=== PATIENT | male | born 1955 | race Caucasian/White ===

== ENCOUNTER 2023-10-30 17:41 | Inpatient (IN) | payer MEDICARE ==
[~2023-10-30] VITALS: Ht 180.3 cm; Wt 106.6 kg
[2023-10-30] MEDS ORDERED: MAGNESIUM HYDROXIDE 30 ML UDC PO PRN (20:30)
[2023-10-30] MEDS ORDERED: Z GUARD REMEDY 4 OZ OINT TP PRN (20:30)
[2023-10-30] MEDS ORDERED: ACETAMINOPHEN 325 MG TABLET PO PRN (20:30)
[2023-10-30] MEDS ORDERED: ONDANSETRON HCL/PF 4 MG/2 ML VIAL IVP PRN (20:30)
[2023-10-30] MEDS ORDERED: HYDROMORPHONE 1 MG/1 ML DISP.SYRIN ONE (20:35)
[2023-10-30] MEDS: ONDANSETRON HCL/PF 4 MG/2 ML VIAL IVP ONE (20:43)
[2023-10-30] MEDS: HYDROMORPHONE INJ 2 MG/ML DISP.SYRIN IV ONE (20:43)
[2023-10-30] MEDS: IV NS 0.9% 1,000 ML BAG IV ONE (20:43)
[2023-10-30 20:59] LABS: BASOPHILS % (AUTO) 0.6 % (0.0-2.0); EOSINOPHILS % (AUTO) 0.3 % (0.0-6.0); HEMATOCRIT 43 % (39-51); HEMOGLOBIN 14.9 g/dL (13.5-17.5); LYMPHOCYTES # (AUTO) 1.2 K/uL (0.8-4.8); LYMPHOCYTES % (AUTO) 19.1 % (20.0-44.0); MEAN CORPUSCULAR HEMOGLOBIN 38 PG (26.0-33.0); MEAN CORPUSCULAR HGB CONC 35 g/dl (31.0-36.0); MEAN CORPUSCULAR VOLUME 108 fL (80-96); MONOCYTES % (AUTO) 16.2 % (2.0-12.0); NEUTROPHILS % (AUTO) 63.8 % (43.0-81.0); PLATELET COUNT (AUTO) 69 K/uL (150-450); RED BLOOD CELL COUNT(AUTO) 3.96 MIL/uL (4.5-6.0); RED CELL DISTRIBUTION WIDTH 14.3 % (11.5-15.0); WHITE BLOOD COUNT (AUTO) 6.3 K/uL (4.3-11.0)
[2023-10-30 21:07] LABS: CALCIUM, SERUM 9.2 mg/dL (8.5-10.1); CREATININE 0.9 mg/dL (0.6-1.3); POTASSIUM 4.3 mmol/L (3.5-5.1)
[2023-10-30 21:15] LABS: INR 1.37 (0.91-1.10); PARTIAL THROMBOPLASTIN TIME 31.6 SEC (24.3-34.3); PROTHROMBIN TIME 14.2 SECS (9.2-11.1)
[2023-10-30 21:26] LABS: LYMPHOCYTES % (MANUAL) 19 % (16-48); MONOCYTES % (MANUAL) 12 % (0-11.0); NEUTROPHILS % (MANUAL) 69 (42-76); PLATELET ESTIMATE DECREASED
[2023-10-30 21:27] LABS: ANISOCYTOSIS 1+
[2023-10-30] MEDS ORDERED: EMPA25TA MT (23:02)
[2023-10-30] MEDS ORDERED: FURO20TA4 PO (23:02)
[2023-10-31] VITALS (19 sets, daily range): BP systolic 80–129; BP diastolic 41–73; TEMP 97.7–99; O2SAT 95–100
[2023-10-31] MEDS: IV NS 0.9% 1,000 ML IV PRN (00:18)
[2023-10-31] MEDS: MORPHINE SULFATE INJ 2 MG/ML DISP.SYRIN IV PRN (00:18)
[2023-10-31] MEDS: MORPHINE SULFATE INJ 2 MG/ML DISP.SYRIN IV ONE (02:44)
[2023-10-31 07:01] LABS: BASOPHILS % (AUTO) 0.2 % (0.0-2.0); EOSINOPHILS % (AUTO) 0.4 % (0.0-6.0); HEMATOCRIT 40 % (39-51); HEMOGLOBIN 13.7 g/dL (13.5-17.5); LYMPHOCYTES # (AUTO) 1.2 K/uL (0.8-4.8); LYMPHOCYTES % (AUTO) 14.6 % (20.0-44.0); MEAN CORPUSCULAR HEMOGLOBIN 37 PG (26.0-33.0); MEAN CORPUSCULAR HGB CONC 34 g/dl (31.0-36.0); MEAN CORPUSCULAR VOLUME 108 fL (80-96); MONOCYTES # (AUTO) 1.6 K/uL (0.1-1.30); MONOCYTES % (AUTO) 19.8 % (2.0-12.0); NEUTROPHILS # (AUTO) 5.2 K/uL (1.8-8.9); PLATELET COUNT (AUTO) 66 K/uL (150-450); RED BLOOD CELL COUNT(AUTO) 3.68 MIL/uL (4.5-6.0); RED CELL DISTRIBUTION WIDTH 14.8 % (11.5-15.0); WHITE BLOOD COUNT (AUTO) 8.1 K/uL (4.3-11.0)
[2023-10-31 07:06] LABS: CALCIUM, SERUM 8.6 mg/dL (8.5-10.1); CREATININE 0.8 mg/dL (0.6-1.3); MAGNESIUM 2.1 mg/dL (1.8-2.4); PHOSPHORUS 4.1 mg/dL (2.5-4.9); POTASSIUM 5.3 mmol/L (3.5-5.1)
[2023-10-31] MEDS: EMPAGLIFLOZIN 25 MG TABLET PO SCH (09:00)
[2023-10-31 09:49] LABS: BASOPHILS % (MANUAL) 0 % (0.0-2.0); EOSINOPHILS % (MANUAL) 0 % (0-4); LYMPHOCYTES % (MANUAL) 12 % (16-48); MONOCYTES % (MANUAL) 16 % (0-11.0); NEUTROPHILS % (MANUAL) 72 (42-76); PLATELET ESTIMATE DECREASED
[2023-10-31] MEDS: SODIUM POLYSTYRENE SULFONATE 15 G/60 ML BOTTLE PO ONE (10:30)
[2023-10-31] MEDS ORDERED: LIDO30AD10 TP (12:42)
[2023-10-31] MEDS ORDERED: HYDR-4303 PO (12:42)
[2023-10-31] MEDS ORDERED: BISA10SU11 RC (12:42)
[2023-10-31] MEDS ORDERED: CRAN3875 PO (12:42)
[2023-10-31] MEDS ORDERED: ALBU0.633 IH (12:42)
[2023-10-31] MEDS ORDERED: LACT10SO29 PO (12:42)
[2023-10-31] MEDS ORDERED: INSU100I40 SQ (12:42)
[2023-10-31] MEDS ORDERED: GLUC1KIT IM (12:42)
[2023-10-31] MEDS ORDERED: THIA100T88 PO (12:42)
[2023-10-31] MEDS ORDERED: CYCL5TAB PO (12:42)
[2023-10-31] MEDS ORDERED: ASCO500T21 PO (12:42)
[2023-10-31] MEDS ORDERED: ACET325T53 PO (12:42)
[2023-10-31] MEDS ORDERED: SENN-261 PO (12:42)
[2023-10-31] MEDS ORDERED: CRAN425C6 PO (12:42)
[2023-10-31] MEDS ORDERED: OMEG1CAP40 PO (12:42)
[2023-10-31] MEDS ORDERED: MULT-213 PO (12:42)
[2023-10-31] MEDS ORDERED: INSU100I24 SQ (12:42)
[2023-10-31] MEDS ORDERED: SPIR50TA5 PO (12:42)
[2023-10-31] MEDS ORDERED: GABA300C PO (12:42)
[2023-10-31] MEDS ORDERED: ACET-2605 PO (12:42)
[2023-10-31] MEDS ORDERED: TAMS-12 PO (12:42)
[2023-10-31] MEDS ORDERED: MAGN400O6 PO (12:42)
[2023-10-31] MEDS ORDERED: DOCU100C36 PO (12:42)
[2023-10-31] MEDS ORDERED: BUPIVACAINE 0.5 % PF 150 MG/30 ML VIAL ONE (12:48)
[2023-10-31] MEDS ORDERED: TRANEXAMIC ACID 1,000 MG/10 ML VIAL ONE (15:15)
[2023-10-31] MEDS ORDERED: FENTANYL PF 250MCG/5ML AMPUL ONE (15:17)
[2023-10-31] MEDS ORDERED: ALBUMIN 5% 250 ML IV ONE (16:24)
[2023-10-31 17:25] LABS: BASOPHILS % (AUTO) 0.3 % (0.0-2.0); EOSINOPHILS % (AUTO) 0.1 % (0.0-6.0); HEMATOCRIT 36 % (39-51); HEMOGLOBIN 12.2 g/dL (13.5-17.5); LYMPHOCYTES # (AUTO) 1.5 K/uL (0.8-4.8); LYMPHOCYTES % (AUTO) 13.4 % (20.0-44.0); MEAN CORPUSCULAR HEMOGLOBIN 38 PG (26.0-33.0); MEAN CORPUSCULAR HGB CONC 34 g/dl (31.0-36.0); MEAN CORPUSCULAR VOLUME 110 fL (80-96); MONOCYTES # (AUTO) 2.2 K/uL (0.1-1.30); MONOCYTES % (AUTO) 19.4 % (2.0-12.0); NEUTROPHILS # (AUTO) 7.7 K/uL (1.8-8.9); NEUTROPHILS % (AUTO) 66.8 % (43.0-81.0); PLATELET COUNT (AUTO) 69 K/uL (150-450); RED BLOOD CELL COUNT(AUTO) 3.23 MIL/uL (4.5-6.0); WHITE BLOOD COUNT (AUTO) 11.4 K/uL (4.3-11.0)
[2023-10-31] MEDS ORDERED: HYDROMORPHONE 1 MG/1 ML DISP.SYRIN ONE (17:29)
[2023-10-31 18:12] LABS: LYMPHOCYTES % (MANUAL) 10 % (16-48); MONOCYTES % (MANUAL) 11 % (0-11.0); NEUTROPHILS % (MANUAL) 79 (42-76); PLATELET ESTIMATE DECREASED
[2023-10-31 20:32] LABS: BASOPHILS % (AUTO) 0.1 % (0.0-2.0); HEMATOCRIT 35 % (39-51); HEMOGLOBIN 11.5 g/dL (13.5-17.5); LYMPHOCYTES # (AUTO) 1.2 K/uL (0.8-4.8); LYMPHOCYTES % (AUTO) 9.1 % (20.0-44.0); MEAN CORPUSCULAR HEMOGLOBIN 37 PG (26.0-33.0); MEAN CORPUSCULAR HGB CONC 33 g/dl (31.0-36.0); MEAN CORPUSCULAR VOLUME 112 fL (80-96); MONOCYTES # (AUTO) 2.5 K/uL (0.1-1.30); MONOCYTES % (AUTO) 18.7 % (2.0-12.0); NEUTROPHILS # (AUTO) 9.8 K/uL (1.8-8.9); NEUTROPHILS % (AUTO) 72.1 % (43.0-81.0); PLATELET COUNT (AUTO) 58 K/uL (150-450); RED BLOOD CELL COUNT(AUTO) 3.08 MIL/uL (4.5-6.0); RED CELL DISTRIBUTION WIDTH 15.7 % (11.5-15.0); WHITE BLOOD COUNT (AUTO) 13.6 K/uL (4.3-11.0)
[2023-10-31 21:20] LABS: PLATELET ESTIMATE DECREASED
[2023-10-31 21:22] LABS: ANISOCYTOSIS 1+
[2023-10-31] MEDS: CEFAZOLIN 2 GM in IV D5W 100 ML IV SCH (23:40)
[2023-10-31] MEDS: MAG HYDROX/AL HYDROX/SIMETH 30 ML UDC PO PRN (23:53)
[2023-11-01] VITALS (20 sets, daily range): BP systolic 101–147; BP diastolic 41–132; TEMP 97.9–98.8; O2SAT 95–99
[2023-11-01] MEDS: ZOLPIDEM TARTRATE 5 MG TABLET PO PRN (00:38)
[2023-11-01 08:18] LABS: BASOPHILS % (AUTO) 0.2 % (0.0-2.0); EOSINOPHILS % (AUTO) 0.4 % (0.0-6.0); HEMATOCRIT 31 % (39-51); HEMOGLOBIN 10.7 g/dL (13.5-17.5); LYMPHOCYTES # (AUTO) 1.4 K/uL (0.8-4.8); LYMPHOCYTES % (AUTO) 14.2 % (20.0-44.0); MEAN CORPUSCULAR HEMOGLOBIN 38 PG (26.0-33.0); MEAN CORPUSCULAR HGB CONC 35 g/dl (31.0-36.0); MEAN CORPUSCULAR VOLUME 110 fL (80-96); MONOCYTES # (AUTO) 1.8 K/uL (0.1-1.30); MONOCYTES % (AUTO) 18.6 % (2.0-12.0); NEUTROPHILS # (AUTO) 6.5 K/uL (1.8-8.9); NEUTROPHILS % (AUTO) 66.6 % (43.0-81.0); PLATELET COUNT (AUTO) 58 K/uL (150-450); RED BLOOD CELL COUNT(AUTO) 2.83 MIL/uL (4.5-6.0); WHITE BLOOD COUNT (AUTO) 9.8 K/uL (4.3-11.0)
[2023-11-01 08:28] LABS: CALCIUM, SERUM 8.5 mg/dL (8.5-10.1); MAGNESIUM 2.6 mg/dL (1.8-2.4); PHOSPHORUS 3.6 mg/dL (2.5-4.9); POTASSIUM 5.5 mmol/L (3.5-5.1)
[2023-11-01] MEDS ORDERED: DEXTROSE 50%-WATER 50 ML DISP.SYRIN IV PRN (08:30)
[2023-11-01] MEDS: LEVOFLOXACIN (250MG) 250 MG TABLET PO SCH (08:40)
[2023-11-01] MEDS: BLOOD SUGAR DIAGNOSTIC 1 EACH STRIP IN SCH (08:40)
[2023-11-01] MEDS ORDERED: ENOXAPARIN SODIUM 40 MG/0.4 ML DISP.SYRIN SQ SCH (09:00)
[2023-11-01] MEDS ORDERED: GABAPENTIN 300 MG CAPSULE PO PRN (10:00)
[2023-11-01] MEDS: INSULIN REGULAR, HUMAN 100 UNIT/ML 3 ML VIAL SQ PRN (10:11)
[2023-11-01 12:21] LABS: NEUTROPHILS % (MANUAL) 80 (42-76)
[2023-11-01 12:22] LABS: BAND % (MANUAL) 1 % (0.0-5.0); EOSINOPHILS % (MANUAL) 0 % (0-4); LYMPHOCYTES % (MANUAL) 5 % (16-48); MONOCYTES % (MANUAL) 14 % (0-11.0)
[2023-11-01 12:23] LABS: ANISOCYTOSIS 1+; PLATELET ESTIMATE DECREASED
[2023-11-01] MEDS: FUROSEMIDE 20 MG TABLET PO SCH (12:47)
[2023-11-01] MEDS: ENOXAPARIN SODIUM 40 MG/0.4 ML DISP.SYRIN SQ SCH (12:48)
[2023-11-01] MEDS ORDERED: Medication Not On Formulary EA (Omega-3 Fatty Acids/Fish Oil (Omega 3 1,000 Mg Softgel) PO SCH (13:00)
[2023-11-01] MEDS: SODIUM POLYSTYRENE SULFONATE 15 G/60 ML BOTTLE PO ONE (14:26)
[2023-11-01] MEDS: TAMSULOSIN 0.4 MG CAP.SR.24H PO SCH (16:34)
[2023-11-01] MEDS: GUAIFENESIN/D-METHORPHAN HB 5 ML UDC PO PRN (16:34)
[2023-11-01] MEDS: LACTULOSE 10 G/15 ML UDC (PYXIS) PO SCH (16:34)
[2023-11-02 05:15] VITALS: O2SAT 99
[2023-11-02 07:00] VITALS: BP 112/155; TEMP 97.9; O2SAT 96
[2023-11-02 07:42] LABS: ALANINE AMINOTRANSFERASE 22 U/L (12-78); ALBUMIN 2.1 g/dL (3.4-5.0); ALKALINE PHOSPHATASE 171 U/L (46-116); ASPARTATE AMINOTRANSFERASE 37 U/L (15-37); BILIRUBIN,TOTAL 2.4 mg/dL (0.2-1.0); CALCIUM, SERUM 8.1 mg/dL (8.5-10.1); CARBON DIOXIDE 26 mmol/L (21-32); CHLORIDE 99 mmol/L (98-107); GLUCOSE 195 mg/dL (74-106); MAGNESIUM 2.4 mg/dL (1.8-2.4); POTASSIUM 5.3 mmol/L (3.5-5.1); SODIUM SERUM 130 mmol/L (136-145); UREA NITROGEN, BLOOD 30 mg/dL (7-18)
[2023-11-02 07:51] LABS: BASOPHILS % (AUTO) 0.2 % (0.0-2.0); EOSINOPHILS % (AUTO) 0.1 % (0.0-6.0); HEMATOCRIT 28 % (39-51); HEMOGLOBIN 10.3 g/dL (13.5-17.5); LYMPHOCYTES # (AUTO) 1.1 K/uL (0.8-4.8); LYMPHOCYTES % (AUTO) 11.8 % (20.0-44.0); MEAN CORPUSCULAR HEMOGLOBIN 42 PG (26.0-33.0); MEAN CORPUSCULAR HGB CONC 36 g/dl (31.0-36.0); MEAN CORPUSCULAR VOLUME 114 fL (80-96); MONOCYTES % (AUTO) 21.5 % (2.0-12.0); NEUTROPHILS # (AUTO) 6.2 K/uL (1.8-8.9); NEUTROPHILS % (AUTO) 66.4 % (43.0-81.0); PLATELET COUNT (AUTO) 59 K/uL (150-450); RED BLOOD CELL COUNT(AUTO) 2.49 MIL/uL (4.5-6.0); RED CELL DISTRIBUTION WIDTH 14.3 % (11.5-15.0); SERUM AMMONIA < 10 umol/L (11-32); WHITE BLOOD COUNT (AUTO) 9.3 K/uL (4.3-11.0)
[2023-11-02 08:22] VITALS: O2SAT 96
[2023-11-02] MEDS: ASCORBIC ACID 500 MG TABLET PO SCH (09:11)
[2023-11-02] MEDS: THIAMINE HCL 100 MG TABLET PO SCH (09:11)
[2023-11-02] MEDS: LIDOCAINE 5% (PATCH) 1 EA PATCH TP SCH (09:14)
[2023-11-02] MEDS: DOCUSATE SODIUM 100 MG CAPSULE PO SCH (09:14)
[2023-11-02 12:24] LABS: ANISOCYTOSIS 1+; BASOPHILS % (MANUAL) 0 % (0.0-2.0); EOSINOPHILS % (MANUAL) 3 % (0-4); LYMPHOCYTES % (MANUAL) 14 % (16-48); MONOCYTES % (MANUAL) 19 % (0-11.0); NEUTROPHILS % (MANUAL) 64 (42-76); PLATELET ESTIMATE DECREASED
[2023-11-02] MEDS: FUROSEMIDE 20 MG/2 ML VIAL IV ONE (14:57)
[2023-11-02 16:00] VITALS: BP 108/57; TEMP 98.4; O2SAT 97
[2023-11-02 20:00] VITALS: BP 119/62; TEMP 99.5; O2SAT 94
[2023-11-02] MEDS: BISACODYL SUPP (10 MG) 10 MG/SUPP.RECT SUPP.RECT RC PRN (22:23)
[2023-11-02] MEDS: NA PHOS,M-B/NA PHOS,DI-BA 1 EA ENEMA RC PRN (23:13)
[2023-11-03 02:29] VITALS: O2SAT 96
[2023-11-03 07:33] LABS: BASOPHILS % (AUTO) 0.2 % (0.0-2.0); EOSINOPHILS % (AUTO) 0.1 % (0.0-6.0); HEMATOCRIT 30 % (39-51); LYMPHOCYTES # (AUTO) 0.7 K/uL (0.8-4.8); LYMPHOCYTES % (AUTO) 6.7 % (20.0-44.0); MEAN CORPUSCULAR HEMOGLOBIN 41 PG (26.0-33.0); MEAN CORPUSCULAR HGB CONC 37 g/dl (31.0-36.0); MEAN CORPUSCULAR VOLUME 112 fL (80-96); MONOCYTES # (AUTO) 1.9 K/uL (0.1-1.30); MONOCYTES % (AUTO) 17.4 % (2.0-12.0); NEUTROPHILS # (AUTO) 8.1 K/uL (1.8-8.9); NEUTROPHILS % (AUTO) 75.6 % (43.0-81.0); PLATELET COUNT (AUTO) 67 K/uL (150-450); RED BLOOD CELL COUNT(AUTO) 2.69 MIL/uL (4.5-6.0); RED CELL DISTRIBUTION WIDTH 14.4 % (11.5-15.0); WHITE BLOOD COUNT (AUTO) 10.7 K/uL (4.3-11.0)
[2023-11-03 08:00] VITALS: BP 121/66; TEMP 97.9; O2SAT 95
[2023-11-03 08:04] VITALS: O2SAT 98
[2023-11-03] MEDS: POLYETHYLENE GLYCOL 3350 17 GM POWD.PACK PO SCH (08:06)
[2023-11-03 08:35] LABS: CALCIUM, SERUM 9.1 mg/dL (8.5-10.1); MAGNESIUM 2.7 mg/dL (1.8-2.4); PHOSPHORUS 2.9 mg/dL (2.5-4.9); POTASSIUM 4.7 mmol/L (3.5-5.1)
[2023-11-03] MEDS: NA PHOS,M-B/NA PHOS,DI-BA 1 EA ENEMA RC ONE (10:18)
[2023-11-03 11:30] LABS: ANISOCYTOSIS 1+; BAND % (MANUAL) 3 % (0.0-5.0); BASOPHILS % (MANUAL) 0 % (0.0-2.0); EOSINOPHILS % (MANUAL) 0 % (0-4); LYMPHOCYTES % (MANUAL) 8 % (16-48); MONOCYTES % (MANUAL) 18 % (0-11.0); NEUTROPHILS % (MANUAL) 71 (42-76); PLATELET ESTIMATE DECREASED
[2023-11-03] MEDS ORDERED: POLY17PO4 PO (13:12)
[2023-11-03] MEDS ORDERED: OXYC5TAB3 PO (13:12)
[2023-11-03] MEDS ORDERED: LEVO750T46 PO (13:12)
[2023-11-03] MEDS ORDERED: ENOX40DI SQ (13:12)
[2023-11-03 16:09] VITALS: BP 90/70; TEMP 98.4; O2SAT 94
== END 2023-11-03 18:05 | DRG 482 ==
LOC: ER 17:48 → MED 22:31 → ICU 10-31 17:48 → MED 11-01 04:24
PROVIDERS: ADMIT Nurse Practitioner Acute Care; ATTEND Nurse Practitioner Family
PROC: 30233K1 Transfusion of Nonautologous Frozen Plasma into Peripheral Vein, Percutaneous Approach (ICD-10-PCS; 2023-10-30)
PROC: 0QS606Z Reposition Right Upper Femur with Intramedullary Internal Fixation Device, Open Approach (ICD-10-PCS; principal; 2023-10-31)
DX: S72.141A Displaced intertrochanteric fracture of right femur, initial encounter for closed fracture (principal); I11.0 Hypertensive heart disease with heart failure; I50.9 Heart failure, unspecified; E11.9 Type 2 diabetes mellitus without complications; W18.30XA Fall on same level, unspecified, initial encounter; Z88.1 Allergy status to other antibiotic agents; Z88.8 Allergy status to other drugs, medicaments and biological substances; D69.6 Thrombocytopenia, unspecified; K74.60 Unspecified cirrhosis of liver; Z88.0 Allergy status to penicillin; J06.9 Acute upper respiratory infection, unspecified; J40 Bronchitis, not specified as acute or chronic
CPT/HCPCS: 36415; 71045-TC; 73501; 73502; 80048-TC; 80053-TC; 82140-TC; 82607-TC; 82962-TC; 83735-TC; 84100-TC; 85025-TC; 85730-TC; 86850-TC; 87081-TC; 93307-TC; 94799-TC; 97110-TC; 97530-TC; A4223; A4349; A6209; C1713; G0378; J0330; J0690; J1170; J1650; J1815; J1940; J2270; J2405; J2704; J3010; J3490; J7030; J7050; J7060; P9017; P9045